=== PATIENT | female | born 1990 | race Caucasian/White ===

== ENCOUNTER 2017-06-02 14:55 | Emergency (ER) | payer SELFPAY ==
[~2017-06-02] VITALS: Ht 170.2 cm; Wt 72.6 kg
[2017-06-02 15:08] VITALS: BP 129/65
--- NOTE | 2017-06-02 16:21 | PHYS DOC ---
Past Medical History Past Medical History: No Pertinent History Past Surgical History: No Surgical History Alcohol Use: Occasionally Drug Use: None Adult General Chief Complaint Chief Complaint: CHEST PAIN-NON CARDIAC NATURE HPI HPI Patient is a 27 year old female who presents with a sharp 4 out of 10 substernal chest pain nonradiating in nature that began 10 days ago. Patient denies anything excessive bleeding or making the pain better. 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 She states she was seen at [facility] 6 days ago for the same complaint and they did an extensive workup which was negative. She states she was instructed to follow-up with a primary care doctor. She states she called one of the local clinics and the doctor told her he charges $50 per visit. She states she does not have medical insurance. She states she could not afford the payment so the doctor asked her to come to the ED to be evaluated. She states she wants to be evaluated for any other causes of this chest pain that was not evaluated when she was seen at [facility]. She states her main concern right now is possibility for gallstones and would like an ultrasound to be done. She states she does not want another cardiac workup because she is self- pay and cannot afford i anymore. She has a Mirena back control, explained to patient and this creates a slight risk of a blood clot. Patient states she has already had a sufficient cardiac workup and only wants an ultrasound. Review of Systems Review of Systems Constitutional: Denies fever or chills [] Eyes: Denies change in visual acuity, redness, or eye pain [] HENT: Denies nasal congestion or sore throat [] Respiratory: Denies cough or shortness of breath [] Cardiovascular: Substernal chest pain GI: Denies abdominal pain, nausea, vomiting, bloody stools or diarrhea [] : Denies dysuria or hematuria [] Musculoskeletal: Denies back pain or joint pain [] Integument: Denies rash or skin lesions [] Neurologic: Denies headache, focal weakness or sensory changes [] All other systems were reviewed and found to be within normal limits, except as documented in this note. Current Medications Current Medications Current Medications Medications (Trade) Dose Ordered Sig/Juni Start Time Stop Time Status Last Admin Dose Admin Multi-Ingredient Mouthwash/Gargle (Gi Cocktail Single Dose) 15 ml 1X ONCE 06/02/17 16:45 06/02/17 16:46 DC 06/02/17 16:19 15 ML Allergies Allergies Allergies Coded Allergies Type Severity Reaction Last Updated Verified No Known Drug Allergies 11/10/13 No Physical Exam Physical Exam Constitutional: Well developed, well nourished, no acute distress, non-toxic appearance. [] HENT: Normocephalic, atraumatic, bilateral external ears normal, oropharynx moist, no oral exudates, nose normal. [] Eyes: PERRLA, EOMI, conjunctiva normal, no discharge. [] Neck: Normal range of motion, no tenderness, supple, no stridor. [] Cardiovascular:Heart rate regular rhythm, no murmur [] Lungs & Thorax: Bilateral breath sounds clear to auscultation [] Abdomen: Bowel sounds normal, soft, no tenderness, no masses, no pulsatile masses. [] Skin: Warm, dry, no erythema, no rash. [] Back: No tenderness, no CVA tenderness. [] Extremities: No tenderness, no cyanosis, no clubbing, ROM intact, no edema. [] Neurologic: Alert and oriented X 3, normal motor function, normal sensory function, no focal deficits noted. [] Psychologic: Affect normal, judgement normal, mood normal. [] Current Patient Data Vital Signs Vital Signs Date Time Temp Pulse Resp B/P (MAP) Pulse Ox O2 Delivery O2 Flow Rate FiO2 06/02/17 15:08 98.3 73 18 100 Room Air 98.3 Lab Values Laboratory Tests Test 06/02/17 15:00 Urine Collection Type Unknown Urine Color Yellow Urine Clarity Clear Urine pH 6.0 Urine Specific Linneus >=1.030 Urine Protein Negative mg/dL (NEG-TRACE) Urine Glucose (UA) Negative mg/dL (NEG) Urine Ketones (Stick) Trace mg/dL (NEG) Urine Blood Negative (NEG) Urine Nitrite Negative (NEG) Urine Bilirubin Negative (NEG) Urine Urobilinogen Dipstick 1.0 mg/dL (0.2 mg/dL) Urine Leukocyte Esterase Negative (NEG) Urine RBC 0 /HPF (0-2) Urine WBC Occ /HPF (0-4) Urine Squamous Epithelial Cells Mod /LPF Urine Bacteria Few /HPF (0-FEW) Urine Mucus Marked /LPF EKG EKG [] Radiology/Procedures Radiology/Procedures []PROCEDURE: ABDOMEN LTD Right upper quadrant abdominal ultrasound History: chest pain, patient request for gall stones . Comparison: CT abdomen and pelvis with contrast, 11/10/2013. Technique: Transabdominal ultrasound images are obtained. Findings: Visualized pancreas is unremarkable. Liver is normal in echogenicity. No focal hepatic masses are identified. Right hepatic lobe measures 14.5 cm, normal. The gallbladder is contracted due to patient limited nothing by mouth status. No cholelithiasis seen. No gallbladder wall thickening. Sonographic Madrigal sign is negative. Common bile duct caliber is normal measuring 3 mm in diameter. The right kidney measures 10 cm in length and is without evidence of obstruction or stone. Visualized portions of the aorta and IVC have normal caliber. IMPRESSION: Unremarkable right upper quadrant ultrasound. DICTATED and SIGNED BY: TROY CASE MD DATE: 06/02/17 999 CC: RICKEY HICKS APRN; NO PCP ~ Course & Med Decision Making Course & Med Decision Making Pertinent Labs and Imaging studies reviewed. (See chart for details) This is a 27-year-old female patient presenting with chest pain for 10 days. She has already been worked up at [facility] 6 days ago for the same complaint. She presents today stating she would like an ultrasound to make sure she does not have gallstones. She is refusing any cardiac workup due to financial issues. She is self-pay. Abdominal ultrasound was negative for any acute findings. Results were given to patient. I recommended she follows up with Dr. hSrestha pullboat engineer. I also recommended an antiacid like omeprazole every day for her acid reflex. Dragon Disclaimer Dragon Disclaimer This electronic medical record was generated, in whole or in part, using a voice recognition dictation system. Departure Departure Impression: Primary Impression: Chest pain Disposition: HOME, SELF-CARE Condition: STABLE Referrals: NO PCP (PCP) PAWEL SHRESTHA MD follow up next week Patient Instructions: Chest Pain (Nonspecific) Additional Instructions: You were seen for ongoing chest pain. We provided you a pullboat engineer, consider following up in the next 1 week. Consider taking an antiacid every day like omeprazole it is over the counter. Please return to the emergency room at any point symptoms worsen. Problem Qualifiers Primary Impression: Chest pain Chest pain type: unspecified Qualified Codes: R07.9 - Chest pain, unspecified MUTUNGA,RICKEY [employer]TERN AND CH[employer] MAKER Jun 02, 2017 16:21
[2017-06-02 16:30] LABS: BILIRUBIN,URINE NEGATIVE (NEG); GLUCOSE,URINE NEGATIVE (NEG); NITRITE,URINE NEGATIVE (NEG); PROTEIN,URINE NEGATIVE (NEG-TRACE)
--- NOTE | 2017-06-02 16:39 | RAD ---
Right upper quadrant abdominal ultrasound History: chest pain, patient request for gall stones . Comparison: CT abdomen and pelvis with contrast, 11/10/2013. Technique: Transabdominal ultrasound images are obtained. Findings: Visualized pancreas is unremarkable. Liver is normal in echogenicity. No focal hepatic masses are identified. Right hepatic lobe measures 14.5 cm, normal. The gallbladder is contracted due to patient limited nothing by mouth status. No cholelithiasis seen. No gallbladder wall thickening. Sonographic Madrigal sign is negative. Common bile duct caliber is normal measuring 3 mm in diameter. The right kidney measures 10 cm in length and is without evidence of obstruction or stone. Visualized portions of the aorta and IVC have normal caliber. IMPRESSION: Unremarkable right upper quadrant ultrasound.
[2017-06-02 16:45] LABS: BACTERIA,URINE FEW /HPF (0-FEW); RBC,URINE 0 /HPF (0-2); SQUAMOUS EPITHELIAL CELL,UR MOD /LPF; WBC,URINE OCC /HPF (0-4)
[2017-06-02] MEDS ORDERED: LIDO:MAALOX:DONNATAL 1:1:1 15 ML SINGLE DOSE SWSW ONE (16:45)
== END 2017-06-02 17:26 | disposition home or self-care (01) ==
LOC: ER 14:55
DX: R07.2 Precordial pain (principal); K21.9 Gastro-esophageal reflux disease without esophagitis
CPT/HCPCS: 76705; 81001; 81025; 99285-25